=== PATIENT | female | born 1985 | race Two or more races ===

== ENCOUNTER 2020-07-08 15:25 | Emergency (ER) | payer MEDICAID, OTHER ==
[~2020-07-08] VITALS: Ht 157.5 cm; Wt 59.0 kg
[2020-07-08 15:29] VITALS: BP 91/69
[2020-07-08] MEDS ORDERED: TETANUS-DIPTH-ACEL PERTUSSIS 0.5ML SYR Tdap IM ONE (17:30)
== END 2020-07-08 18:10 | disposition home or self-care (01) ==
LOC: ER 15:25
DX: S91.115A Laceration without foreign body of left lesser toe(s) without damage to nail, initial encounter (principal); X58.XXXA Exposure to other specified factors, initial encounter; Y93.89 Activity, other specified; Y92.89 Other specified places as the place of occurrence of the external cause; Y99.8 Other external cause status
CPT/HCPCS: 12001; 90471; 90715